=== PATIENT | female | born 1980 | race Caucasian/White ===

== ENCOUNTER 2020-05-19 17:20 | Emergency (ER) | payer MEDICAID ==
[~2020-05-19] VITALS: Ht 172.7 cm; Wt 106.9 kg
--- NOTE | 2020-05-19 18:01 | NUR ---
PER PT SHE WENT TO FOR VAGINAL ITCHING, URINARY FREQUENCY, AND BURNING WHEN URINATING. AT THE [facility] SHE HAD A HR IN THE 120S, SO SENT HER HERE. PER PT SHE HAD A POSITIVE HOME TEST YESTERDAY AND THE UC ALSO TOLD HER SHE HAD A POSITIVE PREG TEST THERE. PT IN [facility], NO COMPLAINTS AT THIS TIME.
[2020-05-19] MEDS ORDERED: SODIUM CHLORIDE 0.9% 1,000ML IVBOLUS ONE (18:30)
[2020-05-19] MEDS ORDERED: SODIUM CHLORIDE FLUSH 10ML SYR IVF ONE (18:30)
[2020-05-19] MEDS ORDERED: ACETAMINOPHEN 500 MG TABLET PO ONE (18:30)
[2020-05-19 18:34] LABS: ALANINE AMINOTRANSFERASE 8 U/L (12-78); ALBUMIN 3.8 g/dL (3.4-5.0); ANION GAP 6 mmol/L (5-15); CALCIUM 9.1 mg/dL (8.5-10.1); CHLORIDE 108 mmol/L (98-107); CREATININE 0.77 mg/dL (0.55-1.02)
[2020-05-19 18:46] LABS: BASOPHILS % (AUTO) 0 % (0-1); EOSINOPHILS % (AUTO) 0 % (1-7); LYMPHOCYTES % (AUTO) 19 % (22-44); MEAN CORPUSCULAR HEMOGLOBIN 28.3 pg (27.0-34.8); MEAN CORPUSCULAR HGB CONC 33.1 g/dL (32.4-35.8); MEAN PLATELET VOLUME 8.6 fL (7.4-10.4); MONOCYTES % (AUTO) 5 % (2-9); NEUTROPHILS % (AUTO) 75 % (42-75); PLATELET COUNT 357 x10^3/uL (130-400)
[2020-05-19] MEDS ORDERED: ACETAMINOPHEN 500 MG TABLET ONE (18:48)
[2020-05-19 18:49] LABS: MD NO
[2020-05-19 18:51] LABS: ALKALINE PHOSPHATASE 79 U/L (45-117); BILIRUBIN,TOTAL 0.5 mg/dL (0.2-1.0); TOTAL PROTEIN 8.1 g/dL (6.4-8.2)
[2020-05-19 20:21] LABS: MICROSCOPIC INDICATED
--- NOTE | 2020-05-19 20:39 | NUR ---
PT TO ULTRASOUND VIA [facility].
[2020-05-19] MEDS ORDERED: NITROFURANTOIN (MACROBID) 100 MG CAPSULE PO ONE (21:00)
--- NOTE | 2020-05-19 21:12 | NUR ---
PT RESTING IN [facility], NO COMPLAINTS AT THIS TIME.
--- NOTE | 2020-05-19 21:54 | NUR ---
REPORT RECIEVED FROM ISSA GOMEZ. THIS RN TO ASSUME CARE
--- NOTE | 2020-05-19 21:54 | NUR ---
REPORT GIVEN TO ISSA GUILLAUME.
--- NOTE | 2020-05-19 22:12 | NUR ---
THIS RN IN WITH [facility] LEDEZMA FOR PELVIC EXAM. SAMPLES WALKED TO LAB. PT. DENIES NEEDS.
[2020-05-19 22:29] VITALS: BP 156/92
[2020-05-19 22:42] LABS: CLUE CELLS NONE SEEN (NONE SEEN); WET PREP WBCS MANY (FEW)
== END 2020-05-19 23:36 | disposition home or self-care (01) ==
LOC: ED 21:24
DX: O26.891 Other specified pregnancy related conditions, first trimester (principal); N89.8 Other specified noninflammatory disorders of vagina; R94.31 Abnormal electrocardiogram [ECG] [EKG]; Z3A.01 Less than 8 weeks gestation of pregnancy
CPT/HCPCS: 36415; 76801; 80053; 81001; 83605; 84702; 85025; 87040; 87086; 87210; 87491; 87591; 87808; 93005; 96360; 99285; J7030

== ENCOUNTER 2020-05-22 10:34 | Emergency (ER) | payer MEDICAID ==
[~2020-05-22] VITALS: Ht 172.7 cm; Wt 112.2 kg
[2020-05-22 10:39] VITALS: BP 167/104
--- NOTE | 2020-05-22 13:18 | NUR ---
Patient/Caregiver given discharge instructions and they have confirmed that they understand the instructions. Patient ambulatory with steady gait.
== END 2020-05-22 13:19 | disposition home or self-care (01) ==
LOC: ED 11:30
DX: Z32.01 Encounter for pregnancy test, result positive (principal)
CPT/HCPCS: 36415; 76830; 84702; 99284

== ENCOUNTER 2020-06-02 12:20 | Emergency (ER) | payer MEDICAID ==
[~2020-06-02] VITALS: Ht 172.7 cm; Wt 110.0 kg
[2020-06-02 13:24] LABS: BASOPHILS % (AUTO) 1 % (0-1); EOSINOPHILS % (AUTO) 1 % (1-7); LYMPHOCYTES % (AUTO) 20 % (22-44); MEAN CORPUSCULAR HEMOGLOBIN 27.6 pg (27.0-34.8); MEAN CORPUSCULAR HGB CONC 32.1 g/dL (32.4-35.8); MEAN PLATELET VOLUME 8.7 fL (7.4-10.4); MONOCYTES % (AUTO) 5 % (2-9); NEUTROPHILS % (AUTO) 73 % (42-75); PLATELET COUNT 377 x10^3/uL (130-400); RED CELL DISTRIBUTION WIDTH 14.2 % (9.6-15.2)
[2020-06-02 13:33] LABS: ALBUMIN 3.7 g/dL (3.4-5.0); ANION GAP 4 mmol/L (5-15); CALCIUM 9.3 mg/dL (8.5-10.1); CHLORIDE 109 mmol/L (98-107); CREATININE 0.82 mg/dL (0.55-1.02)
[2020-06-02 14:10] LABS: MD SCAN
--- NOTE | 2020-06-02 14:24 | NUR ---
BRIM MOLDER: PT AMBULATORY TO ROOM FROM LOBBY
--- NOTE | 2020-06-02 14:28 | NUR ---
ASSUMED CARE OF PATIENT. PATIENT REPORTS SHE IS HERE FOR A FOLLOW UP US. PT WAS NOT ABLE TO GET INTO HER PRIMARY. VS STABLE. NO ACUTE DISTRESS NOTED. CALL LIGHT IN PLACE. WILL CONTINUE OT MONITOR.
--- NOTE | 2020-06-02 15:33 | NUR ---
GAIL MEADOWS HAS UPDATED PATIENT.
[2020-06-02 16:19] LABS: MICROSCOPIC INDICATED
[2020-06-02 16:36] VITALS: BP 118/81
== END 2020-06-02 16:54 | disposition home or self-care (01) ==
LOC: ED 16:00
DX: O23.11 Infections of bladder in pregnancy, first trimester (principal); R10.2 Pelvic and perineal pain; Z3A.01 Less than 8 weeks gestation of pregnancy
CPT/HCPCS: 36415; 76801; 80048; 81001; 82040; 84702; 85025; 87086; 99284

== ENCOUNTER → 2020-09-15 | Outpatient (CLI) | payer BC | END | disposition home or self-care (01) | LOC: CFH 13:03 | PROVIDERS: ATTEND Obstetrics & Gynecology | DX: Z12.31 Encounter for screening mammogram for malignant neoplasm of breast (principal) | CPT/HCPCS: 77067 ==